=== PATIENT | female | born 1940 | race Caucasian/White ===

== ENCOUNTER 2019-06-24 13:13 | Inpatient (IN) | payer OTHER, MEDICARE ==
[~2019-06-24] VITALS: Ht 172.7 cm; Wt 90.2 kg
[2019-06-24 13:14] VITALS: BP 138/52
[2019-06-24 13:41] LABS: ABSOLUTE NEUTROPHILS 2.9 thou/uL (1.4-8.2); BASOPHILS 0.9 % (0.0-2.0); EOSINOPHILS 0.7 % (0.0-3.0); HEMATOCRIT 43.6 % (37.0-47.0); HEMOGLOBIN 14.6 gm/dL (12.0-15.0); LYMPHOCYTES 45.9 % (24.0-44.0); MCH 31.4 pg (26.0-34.0); MCHC 33.4 g/dL (28.0-37.0); MONOCYTES 7.8 % (1.0-8.0); PLATELET COUNT 176 thou/uL (150-400); POLYS 44.7 % (36.0-66.0); RBC 4.64 mil/uL (4.20-5.00); WBC 6.5 thou/uL (4.0-11.0)
[2019-06-24 13:46] LABS: ANION GAP 9 mmol/L (7-16); BUN 19 mg/dL (7-18); CALCIUM 9.6 mg/dL (8.5-10.1); CHLORIDE 103 mmol/L (98-107); CO2 28 mmol/L (21-32); GLUCOSE 120 mg/dL (74-106); POTASSIUM 3.4 mmol/L (3.5-5.1); SODIUM 140 mmol/L (136-145)
[2019-06-24 13:56] LABS: SGOT 25 U/L (15-37); SGPT 21 U/L (30-65); TOTAL BILIRUBIN 0.9 mg/dL (<0.1-1.0); TOTAL PROTEIN 7.5 g/dL (6.4-8.2); TROPONIN-I <0.06 ng/mL (<0.06)
[2019-06-24 14:31] VITALS: BP 110/62
[2019-06-24] MEDS ORDERED: SIMVASTATIN40 MG PO (14:44)
[2019-06-24] MEDS ORDERED: SIMVASTATIN80 MG PO (14:44)
[2019-06-24] MEDS ORDERED: TIROSINT112 MCG PO (14:45)
[2019-06-24] MEDS ORDERED: AZELASTINE205.5 MCG/ NARES (14:45)
[2019-06-24] MEDS ORDERED: IRBESARTAN-HCT1 EACH PO (14:45)
[2019-06-24] MEDS ORDERED: SUPER THERAVIT1 EACH PO (14:46)
[2019-06-24] MEDS ORDERED: ALLER-FEX180 MG PO (14:46)
[2019-06-24] MEDS ORDERED: ALLER-FLO15.8 ML NASAL (14:47)
--- NOTE | 2019-06-24 14:51 | NUR ---
CALLED CCU TO GIVE REPORT, NURSE NOT AVAILABLE AT THIS TIME AND WILL CALL BACK
[2019-06-24 15:00] VITALS: BP 104/68
[2019-06-24 15:40] VITALS: BP 134/84
--- NOTE | 2019-06-24 18:17 | NUR ---
PT ARRIVED ON UNIT FROM ER D/T NEW ONSET AFIB W RVR. ADMIT ORDERS COMPLETE. ASSESSMENT CHARTED. HR ON ARRIVAL TO UNIT WAS 130S-140S. MEDS GIVEN PER OCT. HR NOW IN 80S. A&OX4. NO C/O PAIN OR SOA. UP AD GONSALO. WILL CONTINUE TO MONITOR AND FOLLOW POC.
[2019-06-24 20:00] VITALS: BP 137/79
[2019-06-25 00:28] VITALS: BP 126/65
[2019-06-25 03:46] LABS: CALCIUM 8.6 mg/dL (8.5-10.1); POTASSIUM 3.6 mmol/L (3.5-5.1)
[2019-06-25 04:02] VITALS: BP 143/69
--- NOTE | 2019-06-25 05:07 | NUR ---
ASSUMED PT CARE AT 1900. PT IS ALERT AND ORIENTED WITH NO SIGN OF DISTRESS NOTED. PT IS SITTING AND RESTING COMFORTABLE IN BED. FAMILY AT BEDSIDE. ASSESSMENT COMPLETED AND DOCUMENTED. PT IS NOW IN NSR, SCHEDUELD MEDS ADMINISTERED TO PT. DENIES ANY FURTHER NEEDS AT THIS TIME.
[2019-06-25 08:00] VITALS: BP 137/87
--- NOTE | 2019-06-25 09:20 | 2DMMODE ---
[facility] [address] [place] [address] 2 D/M-MODE ECHOCARDIOGRAM Name: CHAO FLORES Room #: 208-P ADM IN M.R.#: [id number] Admission: 06/24/19 Attend Phys: Marino Pelaez MD Discharge: Date of : 42 Report #: [id number] THIS REPORT FOR: //name// APPROVED REPORT Study performed: 06/25/2019 08:20:51 EXAM: Comprehensive 2D, Doppler, and color-flow Echocardiogram Patient Location: Echo lab Room #: 208 Status: routine BSA: 2.01 HR: 59 bpm BP: 143/69 mmHg Rhythm: Bradycardia Other Information Study Quality: Good Indications Atrial Fibrillation Hypertension/HDD 2D Dimensions RVDd: 30.67 mm IVSd: 11.06 (7-11mm) LVOT Diam: 18.20 (18-24mm) LVDd: 44.37 mm PWd: 11.10 (7-11mm) Ascending Ao: 35.46 (22-36mm) LVDs: 31.58 (25-40mm) Aortic Root: 32.37 mm IVC: 19.00 mm Volumes Left Atrial Volume (Systole) Single Plane 4CH: 38.04 mL Single Plane 2CH: 42.28 mL LA ESV Index: 22.00 mL/m2 Aortic Valve AoV Peak Arnaldo.: 1.48 m/s AO Peak Gr.: 8.77 mmHg LVOT Max P.83 mmHg LVOT Max V: 1.21 m/s DICKSON Vmax: 2.12 cm2 Mitral Valve E/A Ratio: 1.0 MV Decel. Time: 238.87 ms [facility] [address] [place] [address] 2 D/M-MODE ECHOCARDIOGRAM Name: CHAO FLORES Room #: 208-P ADM IN .R.#: [id number] Admission: 06/24/19 Attend Phys: Marino Pelaez MD Discharge: Date of : 42 Report #: [id number] MV E Max Arnaldo.: 1.01 m/s MV A Arnaldo.: 1.05 m/s MV PHT: 69.27 ms IVRT: 115.34 ms Pulmonary Valve PV Peak Arnaldo.: 1.09 m/s PV Peak Gr.: 4.72 mmHg Pulmonary Vein P Vein S: 0.55 m/s P Vein A: 0.28 m/s P Vein D: 0.41 m/s P Vein A Dur.: 96.9 msec P Vein S/D Ratio: 1.34 Tricuspid Valve TR Peak Arnaldo.: 2.52 m/s TR Peak Gr.: 25.33 mmHg PA Pressure: 30.00 mmHg Left Ventricle The left ventricle is normal size. There is normal LV segmental wall motion. There is normal left ventricular wall thickness. Left ventricular systolic function is normal. The left ventricular ejection fraction is within the normal range. LVEF is 55-60%. Grade I - abnormal relaxation pattern. Right Ventricle The right ventricle is normal size. The right ventricular systolic function is normal. Atria The left atrium size is normal. The right atrium size is normal. Aortic Valve The aortic valve is normal in structure. No aortic regurgitation is present. There is no aortic valvular stenosis. Mitral Valve The mitral valve is normal in structure. Mild mitral regurgitation. No evidence of mitral valve stenosis. Tricuspid Valve The tricuspid valve is normal in structure. There is trace to mild tricuspid regurgitation. Estimated PAP 30 mmHg. There is no pulmonary hypertension. [facility] [address] [place] [address] 2 D/M-MODE ECHOCARDIOGRAM Name: CHAO FLORES Room #: 208-P ADM IN M.R.#: [id number] Admission: 06/24/19 Attend Phys: Marino Pelaez MD Discharge: Date of : 42 Report #: [id number] Pulmonic Valve The pulmonary valve is normal in structure. Trace pulmonic regurgitation. Great Vessels The aortic root is normal in size. IVC is normal in size and collapses >50% with inspiration. Pericardium There is no pericardial effusion. <Conclusion> The left ventricle is normal size. LVEF is 55-60%. The aortic valve is normal in structure. The mitral valve is normal in structure. Mild mitral regurgitation. The tricuspid valve is normal in structure. There is trace to mild tricuspid regurgitation. Estimated PAP 30 mmHg. There is no pulmonary hypertension. The pulmonary valve is normal in structure. Trace pulmonic regurgitation. There is no pericardial effusion. <ELECTRONICALLY SIGNED> By: Archie Matthews MD 06/25/19919 9 9 Archie Matthews MD /INF
[2019-06-25] MEDS ORDERED: PRADAXA150 MG PO (09:45)
--- NOTE | 2019-06-25 11:23 | NUR ---
PATIENT CARE ASSUMED, ASSESSMENT CHARTED, VSS, ALERT AND ORIENTED X 4, UP AD GONSALO, NO COMPLAINTS OF PAIN, WILL CONTINUE TO MONITOR.
[2019-06-25 11:45] VITALS: BP 133/70
--- NOTE | 2019-06-25 12:24 | EKG ---
[address] [address] ELECTROCARDIOGRAM REPORT Name: CHAO FLORES Room #: 208-P ADM IN M.R.#: [id number] Admission: 06/24/19 Attend Phys: Marino Pelaez MD Discharge: Date of : 42 Report #: [id number] THIS REPORT FOR: //name// [facility] ED Test Date: 2019-06-24 Test Time: 13:26:28 Pat Name: CHAO FLORES Department: Room: 208 Gender: F Eddy Current Inspector: : 1940 Requested By: Leatha Turner Order Number: [id number] MD: Winston Catherine Measurements Intervals Earth Rate: 133 P: DE: QRS: -11 QRSD: 97 T: -10 QT: 315 QTc: 469 Interpretive Statements Atrial fibrillation Left ventricular hypertrophy Borderline T abnormalities, inferior leads No previous ECG available for comparison Electronically Signed On 06-25-2019 12:24:42 DIRECT CUSTOMER SERVICE REPRESENTATIVE by Winston Catherine [email or web address] <ELECTRONICALLY SIGNED> By: Winston Catherine MD 06/25/19 1224 1326 [id number] Winston Catherine MD /ANANT
[2019-06-25] MEDS ORDERED: TOPROL XL25 MG PO (14:23)
--- NOTE | 2019-06-25 14:25 | NUR ---
CONSULT [id number] COMPLETED BY THIS YARN EXAMINER SKEINS. SHE IS GOING HOME AND VERY HAPPY EVERYTHING OCCURED IT DID.
[2019-06-25 14:31] VITALS: BP 133/70
== END 2019-06-25 15:14 | disposition home or self-care (01) | DRG 310 ==
LOC: ER 13:13 → EROBS 14:22 → 2N 14:22 → ENTRNSPT 06-25 14:58 → EDTRNSPTSTS 06-25 15:02 → 2N 06-25 15:14
PROVIDERS: Nurse Practitioner Family; ADMIT Hospitalist
DX: I48.91 Unspecified atrial fibrillation (principal); I10 Essential (primary) hypertension; E78.5 Hyperlipidemia, unspecified; E03.9 Hypothyroidism, unspecified; E05.00 Thyrotoxicosis with diffuse goiter without thyrotoxic crisis or storm; E03.8 Other specified hypothyroidism; G56.01 Carpal tunnel syndrome, right upper limb; Z88.0 Allergy status to penicillin; Z90.49 Acquired absence of other specified parts of digestive tract; Z82.49 Family history of ischemic heart disease and other diseases of the circulatory system; Z91.040 Latex allergy status; Z85.3 Personal history of malignant neoplasm of breast
CPT/HCPCS: 10194

== ENCOUNTER → 2019-11-23 | Outpatient (CLI) | payer OTHER, MEDICARE ==
[~2019-11-23] MED LIST: ALLER-FEX180 MG PO; ALLER-FLO15.8 ML NASAL; AZELASTINE205.5 MCG/ NARES; IRBESARTAN-HCT1 EACH PO; PRADAXA150 MG PO; SIMVASTATIN40 MG PO; SIMVASTATIN80 MG PO; SUPER THERAVIT1 EACH PO; TIROSINT112 MCG PO; TOPROL XL25 MG PO
== END ==
LOC: SJCVCIMAG 08:36
DX: I44.0 Atrioventricular block, first degree (principal); I48.0 Paroxysmal atrial fibrillation; I10 Essential (primary) hypertension; E78.5 Hyperlipidemia, unspecified; E03.9 Hypothyroidism, unspecified; Z79.899 Other long term (current) drug therapy; Z87.891 Personal history of nicotine dependence; Z79.82 Long term (current) use of aspirin; Z88.0 Allergy status to penicillin; Z91.040 Latex allergy status

== ENCOUNTER → 2020-05-25 | Outpatient (CLI) | payer OTHER, MEDICARE | LOC: SJCVC 09:59 | PROVIDERS: ATTEND Internal Medicine | DX: I48.0 Paroxysmal atrial fibrillation (principal); I10 Essential (primary) hypertension; E78.5 Hyperlipidemia, unspecified; Z79.899 Other long term (current) drug therapy; Z90.49 Acquired absence of other specified parts of digestive tract; Z88.0 Allergy status to penicillin ==

== ENCOUNTER → 2020-11-23 | Outpatient (CLI) | payer OTHER, MEDICARE | LOC: SJCVC 11:10 | PROVIDERS: ATTEND Internal Medicine | DX: R94.31 Abnormal electrocardiogram [ECG] [EKG] (principal); I44.0 Atrioventricular block, first degree; I48.0 Paroxysmal atrial fibrillation; I10 Essential (primary) hypertension; E78.5 Hyperlipidemia, unspecified; J45.909 Unspecified asthma, uncomplicated; E03.9 Hypothyroidism, unspecified; Z79.899 Other long term (current) drug therapy; Z87.891 Personal history of nicotine dependence; Z72.89 Other problems related to lifestyle; Z88.0 Allergy status to penicillin; Z88.8 Allergy status to other drugs, medicaments and biological substances ==

== ENCOUNTER → 2021-05-22 | Outpatient (CLI) | payer OTHER, MEDICARE | LOC: SJCVC 10:40 | PROVIDERS: ATTEND Internal Medicine | DX: R94.31 Abnormal electrocardiogram [ECG] [EKG] (principal); I44.0 Atrioventricular block, first degree; I48.0 Paroxysmal atrial fibrillation; I10 Essential (primary) hypertension; E78.5 Hyperlipidemia, unspecified; J45.909 Unspecified asthma, uncomplicated; Z79.899 Other long term (current) drug therapy; Z87.891 Personal history of nicotine dependence; Z72.89 Other problems related to lifestyle; Z88.0 Allergy status to penicillin; Z91.040 Latex allergy status ==